=== PATIENT | male | born 1990 | race Two or more races ===

== ENCOUNTER 2021-06-10 09:09 | Emergency (ER) | payer OTHER ==
[~2021-06-10] VITALS: Ht 177.8 cm; Wt 145.1 kg
[~2021-06-10 09:09] MED LIST: ATENOLOL25 MG
[2021-06-10] MEDS ORDERED: AMLODIPINE BESYL5 MG PO (09:26)
[2021-06-10] MEDS ORDERED: PEPCID AC20 MG PO (14:57)
[2021-06-10] MEDS ORDERED: LEVSIN/SL0.125 MG SL (14:57)
[2021-06-10] MEDS ORDERED: KETO10TA2 PO (14:57)
== END 2021-06-10 15:58 | disposition home or self-care (01) ==
LOC: ER 09:09
DX: R10.11 Right upper quadrant pain (principal)